=== PATIENT | male | born 1960 | race Caucasian/White ===

== ENCOUNTER 2018-10-19 07:30 | Inpatient (IN) | payer OTHER ==
[2018-11-02] VITALS (15 sets, daily range): BP systolic 111–164; BP diastolic 59–116
[2018-11-02] MEDS ORDERED: SODIUM CHLORIDE 0.9% 1,000 ML IV ONE ×2 (05:30→06:05)
[2018-11-02 06:25] LABS: BASOPHILS % (AUTO) 0.8 % (0.0-2.0); EOSINOPHILS % (AUTO) 2.7 % (1.0-6.0); HEMATOCRIT 46.7 % (41-53); HEMOGLOBIN 16.2 g/dL (13.5-17.5); LYMPHOCYTES # (AUTO) 1.8 K/uL (1.0-4.8); LYMPHOCYTES % (AUTO) 42.1 % (22.0-44.0); MEAN CORPUSCULAR HEMOGLOBIN 27.8 pg (26.0-34.0); MEAN CORPUSCULAR HGB CONC 34.6 G/dL (31.0-37.0); MEAN CORPUSCULAR VOLUME 80 fL (80-100); MONOCYTES # (AUTO) 0.4 K/uL (0.1-1.0); MONOCYTES % (AUTO) 9.4 % (2.0-9.0); NEUTROPHILS # (AUTO) 1.9 K/uL (1.8-7.7); PLATELET COUNT (AUTO) 172 K/uL (150-450); RED BLOOD CELL COUNT(AUTO) 5.82 MIL/uL (4.50-5.90); RED CELL DISTRIBUTION WIDTH 13.7 % (11.5-14.5)
[2018-11-02 06:39] LABS: PROTHROMBIN TIME 10.7 SEC (9.4-11.6)
[2018-11-02] MEDS ORDERED: LEVO50 PO (06:52)
[2018-11-02] MEDS ORDERED: GABA-531 PO (06:52)
[2018-11-02] MEDS ORDERED: ATOR40TA28 PO (06:52)
[2018-11-02] MEDS ORDERED: MAGOX PO (06:52)
[2018-11-02] MEDS ORDERED: RANI150T7 PO (06:52)
[2018-11-02] MEDS ORDERED: ISOS30TA6 PO (06:52)
[2018-11-02] MEDS ORDERED: CLOP75TA3 PO (06:52)
[2018-11-02] MEDS ORDERED: AMIT10TA6 PO (06:52)
[2018-11-02] MEDS ORDERED: OMEP20 PO (06:52)
[2018-11-02] MEDS ORDERED: ASPI-1182 PO (06:52)
[2018-11-02] MEDS ORDERED: ACETAMINOPHEN 1000 MG/ISO-OSM 100 ML IV ONE (06:59)
[2018-11-02] MEDS ORDERED: PROPOFOL 1000 MG/ISO-OSM 200 ML IV ONE (07:00)
[2018-11-02] MEDS ORDERED: IOHEXOL 300 MG/ML 50 ML VIAL ONE (07:11)
[2018-11-02 07:12] LABS: ANION GAP 9 mmol/L (8-16); CARBON DIOXIDE 29 mmol/L (22-29); CHLORIDE 106 mmol/L (98-107); CREATININE 0.91 mg/dL (0.60-1.30); GLOMERULAR FILTR. RATE CALC > 60 mL/min (>60); GLUCOSE,RANDOM 104 mg/dL (70-110); POTASSIUM 4.4 mmol/L (3.5-5.1); SODIUM SERUM 144 mmol/L (136-145); UREA NITROGEN, BLOOD 15 mg/dL (7-18)
[2018-11-02] MEDS ORDERED: LIDOCAINE/PF 1% 30 ML VIAL ONE (07:16)
[2018-11-02] MEDS ORDERED: SODIUM BICARBONATE 50 MEQ/50 ML VIAL ONE (07:17)
[2018-11-02] MEDS ORDERED: VANCOMYCIN HCL 1 GM/VIAL ONE (07:28)
[2018-11-02] MEDS ORDERED: VANCOMYCIN HCL 1 GM/VIAL IRRIG ONE (07:45)
[2018-11-02] MEDS ORDERED: LIDOCAINE 1% 30 ML/SOD BICARB 8.4% 4 ML SQ ONE (07:59)
[2018-11-02] MEDS ORDERED: ISOSORBIDE MONONITRATE 20 MG TABLET PO SCH (10:00)
[2018-11-02] MEDS: MAGNESIUM OXIDE 400 MG TABLET PO SCH (10:00)
[2018-11-02] MEDS: RANITIDINE HCL 150 MG TABLET PO SCH ×2 (10:00→20:35)
[2018-11-02] MEDS: ISOSORBIDE MONONITRATE 30 MG ER TABLET PO SCH (10:27)
[2018-11-02] MEDS: ATORVASTATIN CALCIUM 40 MG TABLET PO SCH (10:28)
[2018-11-02] MEDS: OMEPRAZOLE 20 MG CAPSULE PO SCH (10:28)
[2018-11-02] MEDS: LEVOTHYROXINE SODIUM 50 MCG TABLET PO SCH (10:28)
[2018-11-02] MEDS: GABAPENTIN 300 MG CAPSULE PO SCH (10:28)
[2018-11-02] MEDS: AMITRIPTYLINE HCL 10 MG TABLET PO SCH (10:37)
[2018-11-02] MEDS: ACETAMINOPHEN 325 MG TABLET PO PRN (10:37)
[2018-11-02] MEDS ORDERED: MIDAZOLAM HCL 2 MG/2 ML VIAL IVP ONE (12:00)
[2018-11-02] MEDS ORDERED: KETAMINE HCL 50 MG/ML 10 ML VIAL IVP ONE (12:00)
[2018-11-02] MEDS ORDERED: DEXAMETHASONE SOD PHOS 4 MG/ML VIAL IVP ONE (12:00)
[2018-11-02] MEDS ORDERED: LIDOCAINE/PF 2% 5 ML VIAL INJ ONE (12:00)
[2018-11-02] MEDS ORDERED: KETOROLAC TROMETHAMINE 60 MG/2 ML VIAL IM ONE (12:00)
[2018-11-02] MEDS ORDERED: PROPOFOL 1% 20 ML VIAL IVP ONE (12:00)
[2018-11-02] MEDS ORDERED: ONDANSETRON HCL 4 MG/2 ML VIAL IVP ONE (12:00)
[2018-11-02] MEDS ORDERED: SODIUM CHLORIDE 0.9% 250 ML IV ONE (12:55)
[2018-11-02] MEDS: VANCOMYCIN HCL 500 MG in DEXTROSE 5%-WATER 100 ML IV SCH ×2 (14:27→20:35)
[2018-11-03] VITALS: BP 113/65
[2018-11-03] MEDS: ACETAMINOPHEN 325 MG TABLET PO PRN (03:18)
[2018-11-03 04:00] VITALS: BP 117/80
[2018-11-03] MEDS: LEVOTHYROXINE SODIUM 50 MCG TABLET PO SCH (06:31)
[2018-11-03] MEDS: GABAPENTIN 300 MG CAPSULE PO SCH (07:56)
[2018-11-03] MEDS: OMEPRAZOLE 20 MG CAPSULE PO SCH (07:56)
[2018-11-03] MEDS: ISOSORBIDE MONONITRATE 30 MG ER TABLET PO SCH (07:56)
[2018-11-03] MEDS: RANITIDINE HCL 150 MG TABLET PO SCH (07:56)
[2018-11-03] MEDS: MAGNESIUM OXIDE 400 MG TABLET PO SCH (07:57)
[2018-11-03] MEDS: ATORVASTATIN CALCIUM 40 MG TABLET PO SCH (07:58)
[2018-11-03] MEDS: AMITRIPTYLINE HCL 10 MG TABLET PO SCH (07:59)
[2018-11-03 08:20] VITALS: BP 133/83
[2018-11-03 11:32] VITALS: BP 130/87
== END 2018-11-03 12:45 | disposition home or self-care (01) | DRG 171 ==
LOC: 5N 11-02 05:22
PROVIDERS: ADMIT Internal Medicine Cardiovascular Disease; ATTEND Internal Medicine Cardiovascular Disease
PROC: 0JH606Z Insertion of Pacemaker, Dual Chamber into Chest Subcutaneous Tissue and Fascia, Open Approach (ICD-10-PCS; principal; 2018-11-02)
PROC: 02H63JZ Insertion of Pacemaker Lead into Right Atrium, Percutaneous Approach (ICD-10-PCS; 2018-11-02)
PROC: 02HK3JZ Insertion of Pacemaker Lead into Right Ventricle, Percutaneous Approach (ICD-10-PCS; 2018-11-02)
DX: I49.5 Sick sinus syndrome (principal); Z88.0 Allergy status to penicillin
CPT/HCPCS: 33208; 76000; 87081; 93005; G0378; J0131; J0690; J1100; J1885; J2250; J2405; J2704; J3370; J3490; J7030; J7050; J7060; Q9967

== ENCOUNTER 2019-07-13 14:23 | Emergency (ER) | payer OTHER ==
[~2019-07-13] VITALS: Ht 167.6 cm; Wt 72.7 kg
[~2019-07-13 14:23] MED LIST: AMIT10TA6 PO; ASPI-1111 PO; ATOR40TA28 PO; CLOP75TA3 PO; GABA-531 PO; ISOS30TA6 PO; LEVO50 PO; MAGOX PO; OMEP20 PO; RANI150T7 PO
[2019-07-13] MEDS ORDERED: OXYC10TA59 PO (14:45)
[2019-07-13] MEDS ORDERED: LABE100T8 PO (14:45)
[2019-07-13] MEDS ORDERED: AMLO10TA7 PO (14:45)
[2019-07-13] MEDS ORDERED: APIX5TAB PO (14:45)
[2019-07-13 14:47] LABS: GLUCOSE,POINT OF CARE 128 MG/DL (70-110)
[2019-07-13 15:25] LABS: BASOPHILS % (AUTO) 0.6 % (0.0-2.0); EOSINOPHILS % (AUTO) 0.8 % (1.0-6.0); HEMATOCRIT 39.7 % (41-53); HEMOGLOBIN 13.7 g/dL (13.5-17.5); LYMPHOCYTES # (AUTO) 1.7 K/uL (1.0-4.8); LYMPHOCYTES % (AUTO) 34.4 % (22.0-44.0); MEAN CORPUSCULAR HEMOGLOBIN 27.6 pg (26.0-34.0); MEAN CORPUSCULAR HGB CONC 34.6 G/dL (31.0-37.0); MEAN CORPUSCULAR VOLUME 80 fL (80-100); MONOCYTES # (AUTO) 0.5 K/uL (0.1-1.0); MONOCYTES % (AUTO) 9.5 % (2.0-9.0); NEUTROPHILS # (AUTO) 2.6 K/uL (1.8-7.7); NEUTROPHILS % (AUTO) 54.7 % (40.0-70.0); PLATELET COUNT (AUTO) 184 K/uL (150-450); RED BLOOD CELL COUNT(AUTO) 4.98 MIL/uL (4.50-5.90); RED CELL DISTRIBUTION WIDTH 13.8 % (11.5-14.5)
[2019-07-13 15:40] LABS: ANION GAP 9 mmol/L (8-16); CALCIUM, TOTAL 8.9 mg/dL (8.8-10.5); CARBON DIOXIDE 29 mmol/L (22-29); CHLORIDE 107 mmol/L (98-107); CREATININE 0.93 mg/dL (0.60-1.30); GLOMERULAR FILTR. RATE CALC > 60 mL/min (>60); GLUCOSE,RANDOM 96 mg/dL (70-110); POTASSIUM 3.9 mmol/L (3.5-5.1); SODIUM SERUM 145 mmol/L (136-145); UREA NITROGEN, BLOOD 14 mg/dL (7-18)
[2019-07-13 15:51] LABS: ALANINE AMINOTRANSFERASE 26 U/L (12-78); ALBUMIN 3.7 g/dL (3.4-5.0); ALKALINE PHOSPHATASE 80 U/L (46-116); ASPARTATE AMINOTRANSFERASE 18 U/L (15-37); BILIRUBIN,TOTAL 0.6 mg/dL (0.1-1.0); CREATINE KINASE, TOTAL ONLY 86 U/L (39-308); TOTAL PROTEIN, SERUM 6.6 g/dL (6.4-8.2)
[2019-07-13 15:58] LABS: INR 1.1 (0.9-1.1); PROTHROMBIN TIME 11.2 SEC (9.4-11.6)
[2019-07-13 16:09] LABS: B-TYPE NATRIURETIC PEPTIDE 9 pg/mL (0-100)
[2019-07-13 16:49] VITALS: BP 131/71
== END 2019-07-13 17:10 | disposition home or self-care (01) ==
LOC: EMS 14:24
DX: R07.89 Other chest pain (principal); E03.9 Hypothyroidism, unspecified; I10 Essential (primary) hypertension; G43.909 Migraine, unspecified, not intractable, without status migrainosus; E78.00 Pure hypercholesterolemia, unspecified; Z95.0 Presence of cardiac pacemaker; Z88.0 Allergy status to penicillin
CPT/HCPCS: 93005

== ENCOUNTER 2021-12-21 08:58 | Inpatient (IN) | payer OTHER ==
[~2021-12-21] VITALS: Ht 165.1 cm; Wt 91.5 kg
[~2021-12-21 08:58] MED LIST changes: +AMIT-166 PO; -AMIT10TA6 PO; +AMLO-258 PO; +APIX5TAB PO; -ASPI-1111 PO; -CLOP75TA3 PO; +CLOP75TA60 PO; +GABA-1181 PO; -GABA-531 PO; -ISOS30TA6 PO; +ISOS30TA92 PO; +LABE100T51 PO; +MAGN400T7 PO; -MAGOX PO; +OXYC10TA59 PO
[2021-12-21 09:56] LABS: BASOPHILS % (AUTO) 0.6 % (0.0-2.0); EOSINOPHILS % (AUTO) 1.1 % (1.0-6.0); HEMATOCRIT 40.3 % (41-53); HEMOGLOBIN 13.7 g/dL (13.5-17.5); LYMPHOCYTES % (AUTO) 21.7 % (22.0-44.0); MEAN CORPUSCULAR HEMOGLOBIN 27.4 pg (26.0-34.0); MEAN CORPUSCULAR HGB CONC 34.1 G/dL (31.0-37.0); MEAN CORPUSCULAR VOLUME 81 fL (80-100); MONOCYTES # (AUTO) 0.2 K/uL (0.1-1.0); MONOCYTES % (AUTO) 5.5 % (2.0-9.0); NEUTROPHILS # (AUTO) 3.2 K/uL (1.8-7.7); NEUTROPHILS % (AUTO) 71.1 % (40.0-70.0); PLATELET COUNT (AUTO) 175 K/uL (150-450); RED CELL DISTRIBUTION WIDTH 14.1 % (11.5-14.5)
[2021-12-21 09:59] LABS: COVID AG,FIA SOURCE NASAL SWAB
[2021-12-21] MEDS ORDERED: HYDR50TA36 PO (10:14)
[2021-12-21] MEDS ORDERED: ISOS5TAB5 PO (10:14)
[2021-12-21 10:20] LABS: ALANINE AMINOTRANSFERASE 63 U/L (12-78); ALBUMIN 3.9 g/dL (3.4-5.0); ALKALINE PHOSPHATASE 77 U/L (46-116); ANION GAP 8 mmol/L (8-16); ASPARTATE AMINOTRANSFERASE 35 U/L (15-37); BILIRUBIN,TOTAL 0.7 mg/dL (0.1-1.0); CALCIUM, TOTAL 8.8 mg/dL (8.8-10.5); CARBON DIOXIDE 28 mmol/L (22-29); CHLORIDE 106 mmol/L (98-107); CREATININE 0.81 mg/dL (0.60-1.30); GLUCOSE,RANDOM 109 mg/dL (70-110); POTASSIUM 3.8 mmol/L (3.5-5.1); SODIUM SERUM 142 mmol/L (136-145); TOTAL PROTEIN, SERUM 6.6 g/dL (6.4-8.2)
[2021-12-21 10:26] LABS: GLOMERULAR FILTR. RATE CALC > 60 mL/min (>60)
[2021-12-21 10:35] LABS: B-TYPE NATRIURETIC PEPTIDE 43 pg/mL (0-100); UREA NITROGEN, BLOOD 14 mg/dL (7-18)
[2021-12-21] MEDS ORDERED: ACETAMINOPHEN 325 MG TABLET PO ONE (10:45)
[2021-12-21] MEDS ORDERED: OXYC5TAB3 PO (14:24)
[2021-12-21] MEDS ORDERED: CHOL100062 PO (14:24)
[2021-12-21] MEDS ORDERED: ASPI-1444 PO (14:24)
[2021-12-21] MEDS ORDERED: LIDO1ADH63 TD (14:24)
[2021-12-21] MEDS ORDERED: ZOLPIDEM TARTRATE 5 MG TABLET PO PRN (14:30)
[2021-12-21] MEDS ORDERED: HYDROCODONE/ACETAMINOPHEN 5-325 MG TABLET PO PRN (14:30)
[2021-12-21] MEDS ORDERED: ACETAMINOPHEN 325 MG TABLET PO PRN (14:30)
[2021-12-21] MEDS ORDERED: SODIUM CHLORIDE 0.9% 500 ML IV ONE (14:30)
[2021-12-21] MEDS ORDERED: ONDANSETRON HCL 4 MG/2 ML VIAL IVP PRN (14:30)
[2021-12-21] MEDS ORDERED: 0.9% SODIUM CHLORIDE 10 ML SYRINGE IVP PRN (14:30)
[2021-12-21] MEDS ORDERED: BISACODYL 10 MG RECTAL RECTAL SUPPOSITORY PR PRN (14:30)
[2021-12-21] MEDS ORDERED: MAGNESIUM HYDROXIDE SUSPENSION 30 ML UDCUP PO PRN (14:30)
[2021-12-21 14:58] VITALS: BP 137/75
[2021-12-21] MEDS: HEPARIN SODIUM,PORCINE 5,000 UNITS/ML VIAL SQ SCH ×2 (17:42→23:47)
[2021-12-21 19:22] VITALS: BP 116/71
[2021-12-21] MEDS: APIXABAN 5 MG TABLET PO SCH (20:33)
[2021-12-21] MEDS: DOCUSATE SODIUM 100 MG CAPSULE PO SCH (20:34)
[2021-12-21 23:51] VITALS: BP 116/70
[2021-12-22 05:08] VITALS: BP 130/87
[2021-12-22 06:55] LABS: BASOPHILS % (AUTO) 0.8 % (0.0-2.0); EOSINOPHILS % (AUTO) 4.3 % (1.0-6.0); HEMATOCRIT 41.8 % (41-53); HEMOGLOBIN 14.3 g/dL (13.5-17.5); LYMPHOCYTES # (AUTO) 1.2 K/uL (1.0-4.8); LYMPHOCYTES % (AUTO) 40.2 % (22.0-44.0); MEAN CORPUSCULAR HEMOGLOBIN 27.7 pg (26.0-34.0); MEAN CORPUSCULAR HGB CONC 34.3 G/dL (31.0-37.0); MEAN CORPUSCULAR VOLUME 81 fL (80-100); MONOCYTES # (AUTO) 0.2 K/uL (0.1-1.0); MONOCYTES % (AUTO) 8.1 % (2.0-9.0); NEUTROPHILS # (AUTO) 1.4 K/uL (1.8-7.7); NEUTROPHILS % (AUTO) 46.6 % (40.0-70.0); PLATELET COUNT (AUTO) 161 K/uL (150-450); RED BLOOD CELL COUNT(AUTO) 5.17 MIL/uL (4.50-5.90); RED CELL DISTRIBUTION WIDTH 14.2 % (11.5-14.5)
[2021-12-22 07:06] VITALS: BP 125/78
[2021-12-22 07:14] LABS: ALANINE AMINOTRANSFERASE 56 U/L (12-78); ALBUMIN 3.5 g/dL (3.4-5.0); ALKALINE PHOSPHATASE 81 U/L (46-116); ANION GAP 8 mmol/L (8-16); ASPARTATE AMINOTRANSFERASE 26 U/L (15-37); BILIRUBIN,TOTAL 0.4 mg/dL (0.1-1.0); CALCIUM, TOTAL 8.9 mg/dL (8.8-10.5); CARBON DIOXIDE 27 mmol/L (22-29); CHLORIDE 107 mmol/L (98-107); CREATININE 0.72 mg/dL (0.60-1.30); GLUCOSE,RANDOM 118 mg/dL (70-110); POTASSIUM 3.7 mmol/L (3.5-5.1); SODIUM SERUM 142 mmol/L (136-145); TOTAL PROTEIN, SERUM 6.6 g/dL (6.4-8.2); UREA NITROGEN, BLOOD 10 mg/dL (7-18)
[2021-12-22 07:18] LABS: GLOMERULAR FILTR. RATE CALC > 60 mL/min (>60)
[2021-12-22] MEDS: AmLODIPine BESYLATE 10 MG TABLET PO SCH (08:37)
[2021-12-22] MEDS: PANTOPRAZOLE SODIUM 40 MG DR TABLET PO SCH (08:37)
[2021-12-22] MEDS: DOCUSATE SODIUM 100 MG CAPSULE PO SCH ×2 (08:37→20:36)
[2021-12-22] MEDS: APIXABAN 5 MG TABLET PO SCH ×2 (08:37→20:36)
[2021-12-22] MEDS: HEPARIN SODIUM,PORCINE 5,000 UNITS/ML VIAL SQ SCH ×3 (08:37→23:49)
[2021-12-22] MEDS: CLOPIDOGREL BISULFATE 75 MG TABLET PO SCH (08:37)
[2021-12-22] MEDS: ATORVASTATIN CALCIUM 40 MG TABLET PO SCH (08:38)
[2021-12-22 11:28] VITALS: BP 119/84
[2021-12-22 15:22] VITALS: BP 107/80
[2021-12-22 20:03] VITALS: BP 129/85
[2021-12-22 23:04] VITALS: BP 105/76
[2021-12-23] MEDS: MORPHINE SULFATE 2 MG/ML SYRINGE IVP PRN ×2 (04:39→11:08)
[2021-12-23 05:01] VITALS: BP 134/85
[2021-12-23 05:44] LABS: HEMATOCRIT 45.6 % (41-53); HEMOGLOBIN 15.6 g/dL (13.5-17.5); LYMPHOCYTES # (AUTO) 1.5 K/uL (1.0-4.8); LYMPHOCYTES % (AUTO) 40.9 % (22.0-44.0); MEAN CORPUSCULAR HEMOGLOBIN 27.5 pg (26.0-34.0); MEAN CORPUSCULAR HGB CONC 34.1 G/dL (31.0-37.0); MEAN CORPUSCULAR VOLUME 81 fL (80-100); MONOCYTES # (AUTO) 0.3 K/uL (0.1-1.0); NEUTROPHILS # (AUTO) 1.6 K/uL (1.8-7.7); NEUTROPHILS % (AUTO) 46.1 % (40.0-70.0); PLATELET COUNT (AUTO) 172 K/uL (150-450); RED BLOOD CELL COUNT(AUTO) 5.66 MIL/uL (4.50-5.90); RED CELL DISTRIBUTION WIDTH 14.2 % (11.5-14.5)
[2021-12-23 05:52] LABS: ANION GAP 4 mmol/L (8-16); CALCIUM, TOTAL 9.2 mg/dL (8.8-10.5); CARBON DIOXIDE 31 mmol/L (22-29); CHLORIDE 105 mmol/L (98-107); GLUCOSE,RANDOM 112 mg/dL (70-110); POTASSIUM 4.7 mmol/L (3.5-5.1); SODIUM SERUM 140 mmol/L (136-145); UREA NITROGEN, BLOOD 8 mg/dL (7-18)
[2021-12-23 05:55] LABS: GLOMERULAR FILTR. RATE CALC > 60 mL/min (>60)
[2021-12-23 07:35] VITALS: BP 112/84
[2021-12-23] MEDS: APIXABAN 5 MG TABLET PO SCH (09:18)
[2021-12-23] MEDS: HEPARIN SODIUM,PORCINE 5,000 UNITS/ML VIAL SQ SCH (09:19)
[2021-12-23] MEDS: CLOPIDOGREL BISULFATE 75 MG TABLET PO SCH (09:19)
[2021-12-23] MEDS: DOCUSATE SODIUM 100 MG CAPSULE PO SCH (09:19)
[2021-12-23] MEDS: AmLODIPine BESYLATE 10 MG TABLET PO SCH (09:19)
[2021-12-23] MEDS: ATORVASTATIN CALCIUM 40 MG TABLET PO SCH (09:19)
[2021-12-23] MEDS: PANTOPRAZOLE SODIUM 40 MG DR TABLET PO SCH (09:19)
[2021-12-23 11:01] VITALS: BP 131/78
[2021-12-23 11:05] VITALS: BP 122/71
[2021-12-23 14:36] VITALS: BP 115/86
== END 2021-12-23 16:20 | disposition home or self-care (01) | DRG 203 ==
LOC: EMS 09:03 → 5S 14:04
PROVIDERS: ADMIT Internal Medicine; ATTEND Internal Medicine
DX: R07.89 Other chest pain (principal); I49.5 Sick sinus syndrome; I95.9 Hypotension, unspecified; I50.9 Heart failure, unspecified; I48.20 Chronic atrial fibrillation, unspecified; E03.9 Hypothyroidism, unspecified; E66.01 Morbid (severe) obesity due to excess calories; G43.909 Migraine, unspecified, not intractable, without status migrainosus; E78.5 Hyperlipidemia, unspecified; R06.00 Dyspnea, unspecified; G89.29 Other chronic pain; E78.00 Pure hypercholesterolemia, unspecified; J45.909 Unspecified asthma, uncomplicated; Z79.01 Long term (current) use of anticoagulants; Z79.02 Long term (current) use of antithrombotics/antiplatelets; Z95.0 Presence of cardiac pacemaker; Z95.5 Presence of coronary angioplasty implant and graft; Z79.899 Other long term (current) drug therapy; Z88.0 Allergy status to penicillin; Z79.82 Long term (current) use of aspirin; Z68.33 Body mass index [BMI] 33.0-33.9, adult
CPT/HCPCS: 71045; 80048; 80053; 83605; 83880; 84443; 84484; 85025; 85379; 87040; 93005; 93306; 99285; G0378; J1644; J2270; J7040; 36415-L1; 36415-TC

== ENCOUNTER 2022-05-31 09:58 | Emergency (ER) | payer OTHER ==
[~2022-05-31] VITALS: Ht 170.2 cm; Wt 90.9 kg
[~2022-05-31 09:58] MED LIST changes: +ASPI-1444 PO; +CHOL100062 PO; -LABE100T51 PO; +LIDO1ADH63 TD; -OXYC10TA59 PO; +OXYC5TAB3 PO; -RANI150T7 PO
[2022-05-31 11:45] LABS: BASOPHILS % (AUTO) 0.6 % (0.0-2.0); EOSINOPHILS % (AUTO) 1.2 % (1.0-6.0); HEMATOCRIT 43.2 % (41-53); HEMOGLOBIN 14.8 g/dL (13.5-17.5); LYMPHOCYTES # (AUTO) 1.2 K/uL (1.0-4.8); LYMPHOCYTES % (AUTO) 24.8 % (22.0-44.0); MEAN CORPUSCULAR HEMOGLOBIN 27.2 pg (26.0-34.0); MEAN CORPUSCULAR HGB CONC 34.4 G/dL (31.0-37.0); MEAN CORPUSCULAR VOLUME 79 fL (80-100); MONOCYTES # (AUTO) 0.3 K/uL (0.1-1.0); MONOCYTES % (AUTO) 7.3 % (2.0-9.0); NEUTROPHILS # (AUTO) 3.1 K/uL (1.8-7.7); NEUTROPHILS % (AUTO) 66.1 % (40.0-70.0); PLATELET COUNT (AUTO) 223 K/uL (150-450); RED BLOOD CELL COUNT(AUTO) 5.45 MIL/uL (4.50-5.90); RED CELL DISTRIBUTION WIDTH 13.6 % (11.5-14.5)
[2022-05-31 12:13] LABS: APPEARANCE,URINE TURBID (CLEAR); BILIRUBIN,URINE NEGATIVE (NEGATIVE); GLUCOSE, URINE (UA) NEGATIVE (NEGATIVE); KETONES,URINE TRACE mg/dL (NEGATIVE); LEUKOCYTE ESTERASE ,URINE SMALL (NEGATIVE); NITRATE,URINE NEGATIVE (NEGATIVE); OCCULT BLOOD,URINE LARGE (NEGATIVE); PROTEIN,URINE 100-200,SEE CONFIRM mg/dL (NEGATIVE); SPECIFIC GRAVITIY, URINE 1.031 (1.003-1.030); UROBILINOGEN,URINE <=1.0 mg/dL (<=1.0)
[2022-05-31 12:47] LABS: ANION GAP 7 mmol/L (8-16); CALCIUM, TOTAL 9.5 mg/dL (8.8-10.5); CARBON DIOXIDE 31 mmol/L (22-29); CHLORIDE 105 mmol/L (98-107); GLOMERULAR FILTR. RATE CALC > 60 mL/min (>60); GLUCOSE,RANDOM 102 mg/dL (70-110); POTASSIUM 4.4 mmol/L (3.5-5.1); SODIUM SERUM 143 mmol/L (136-145); UREA NITROGEN, BLOOD 13 mg/dL (7-18)
[2022-05-31 12:53] LABS: ALANINE AMINOTRANSFERASE 20 U/L (12-78); ALKALINE PHOSPHATASE 98 U/L (46-116); ASPARTATE AMINOTRANSFERASE 14 U/L (15-37); BILIRUBIN,TOTAL 0.9 mg/dL (0.1-1.0); LIPASE 94 U/L (73-393); TOTAL PROTEIN, SERUM 7.6 g/dL (6.4-8.2)
[2022-05-31 12:58] LABS: SULFOSALICYLIC ACID,URINE 3+ (Negative)
[2022-05-31 12:59] LABS: RBC,URINE Full Field /HPF (0-2)
[2022-05-31 13:02] LABS: BACTERIA,URINE None Seen /HPF (None Seen)
[2022-05-31] MEDS ORDERED: OMEP20 PO (13:59)
[2022-05-31 14:14] VITALS: BP 122/80
== END 2022-05-31 14:16 | disposition home or self-care (01) ==
LOC: EMS 10:02
DX: R31.9 Hematuria, unspecified (principal); K92.1 Melena; I11.0 Hypertensive heart disease with heart failure; I50.9 Heart failure, unspecified; E78.00 Pure hypercholesterolemia, unspecified; E03.9 Hypothyroidism, unspecified; G43.909 Migraine, unspecified, not intractable, without status migrainosus; Z95.0 Presence of cardiac pacemaker; Z88.0 Allergy status to penicillin; Z79.82 Long term (current) use of aspirin; Z79.899 Other long term (current) drug therapy
CPT/HCPCS: 80053; 81001; 81002; 82271; 83690; 84484; 85025; 93005; 99284